=== PATIENT | female | born 1995 | race Caucasian/White ===

== ENCOUNTER → 2023-12-15 11:29 | Outpatient (REF) | payer OTHER, SELFPAY | LOC: PNTC 11:29 | PROVIDERS: ATTENDING PHYSICIAN Obstetrics & Gynecology | DX: O28.3 Abnormal ultrasonic finding on antenatal screening of mother (principal); O99.119 Other diseases of the blood and blood-forming organs and certain disorders involving the immune mechanism complicating pregnancy, unspecified trimester | CPT/HCPCS: 76816 ==

== ENCOUNTER 2024-01-06 10:30 | Observation (INO) | payer OTHER, SELFPAY ==
[2024-01-06 10:40] VITALS: BP 114/72; BMI 28.3
== END 2024-01-06 11:31 | disposition home or self-care (01) ==
LOC: LDRP 10:30
PROVIDERS: ADMITTING PHYSICIAN Obstetrics & Gynecology
DX: O36.8130 Decreased fetal movements, third trimester, not applicable or unspecified (principal); O26.893 Other specified pregnancy related conditions, third trimester; M35.00 Sjogren syndrome, unspecified; M32.9 Systemic lupus erythematosus, unspecified; Z3A.29 29 weeks gestation of pregnancy
CPT/HCPCS: 76816

== ENCOUNTER → 2024-01-27 16:57 | Outpatient (REF) | payer OTHER, SELFPAY | LOC: PNTC 16:57 | PROVIDERS: ATTENDING PHYSICIAN Obstetrics & Gynecology | DX: O99.119 Other diseases of the blood and blood-forming organs and certain disorders involving the immune mechanism complicating pregnancy, unspecified trimester (principal) | CPT/HCPCS: 59025; 76815 ==

== ENCOUNTER 2024-01-27 18:36 | Outpatient (RCR) | payer OTHER, SELFPAY | END 2024-01-27 23:59 | disposition home or self-care (01) | LOC: RPT 18:36 | PROVIDERS: ATTENDING PHYSICIAN Obstetrics & Gynecology | DX: O26.893 Other specified pregnancy related conditions, third trimester (principal); N39.3 Stress incontinence (female) (male); Z73.6 Limitation of activities due to disability; M62.81 Muscle weakness (generalized); R10.2 Pelvic and perineal pain | CPT/HCPCS: 97112; 97163; 97530 ==

== ENCOUNTER → 2024-02-03 16:58 | Outpatient (REF) | payer OTHER, SELFPAY | LOC: PNTC 16:58 | PROVIDERS: ATTENDING PHYSICIAN Obstetrics & Gynecology | DX: O99.119 Other diseases of the blood and blood-forming organs and certain disorders involving the immune mechanism complicating pregnancy, unspecified trimester (principal) | CPT/HCPCS: 59025; 76816 ==

== ENCOUNTER → 2024-02-10 16:58 | Outpatient (REF) | payer OTHER, SELFPAY | LOC: PNTC 16:58 | PROVIDERS: ATTENDING PHYSICIAN Obstetrics & Gynecology | DX: O99.119 Other diseases of the blood and blood-forming organs and certain disorders involving the immune mechanism complicating pregnancy, unspecified trimester (principal) | CPT/HCPCS: 59025; 76815 ==

== ENCOUNTER → 2024-02-17 17:00 | Outpatient (REF) | payer OTHER, SELFPAY | LOC: PNTC 17:00 | PROVIDERS: ATTENDING PHYSICIAN Obstetrics & Gynecology | DX: O99.119 Other diseases of the blood and blood-forming organs and certain disorders involving the immune mechanism complicating pregnancy, unspecified trimester (principal) | CPT/HCPCS: 59025; 76815 ==

== ENCOUNTER → 2024-02-24 17:08 | Outpatient (REF) | payer OTHER, SELFPAY | LOC: PNTC 17:08 | PROVIDERS: ATTENDING PHYSICIAN Obstetrics & Gynecology | DX: O99.119 Other diseases of the blood and blood-forming organs and certain disorders involving the immune mechanism complicating pregnancy, unspecified trimester (principal) | CPT/HCPCS: 59025; 76815 ==

== ENCOUNTER → 2024-03-02 16:55 | Outpatient (REF) | payer OTHER, SELFPAY | LOC: PNTC 16:55 | PROVIDERS: ATTENDING PHYSICIAN Obstetrics & Gynecology | DX: O99.119 Other diseases of the blood and blood-forming organs and certain disorders involving the immune mechanism complicating pregnancy, unspecified trimester (principal) | CPT/HCPCS: 59025; 76816; 76818 ==

== ENCOUNTER 2024-03-02 19:14 | Outpatient (RCR) | payer OTHER, SELFPAY | END 2024-03-02 23:59 | disposition home or self-care (01) | LOC: RPT 19:14 | PROVIDERS: ATTENDING PHYSICIAN Obstetrics & Gynecology | DX: O26.893 Other specified pregnancy related conditions, third trimester (principal); N39.3 Stress incontinence (female) (male); Z73.6 Limitation of activities due to disability; M62.81 Muscle weakness (generalized); R10.2 Pelvic and perineal pain; M54.50 Low back pain, unspecified | CPT/HCPCS: 59025; 97110; 97112; 97140; 97530 ==

== ENCOUNTER → 2024-03-09 16:04 | Outpatient (REF) | payer OTHER, SELFPAY | LOC: PNTC 16:04 | PROVIDERS: ATTENDING PHYSICIAN Obstetrics & Gynecology | DX: O99.119 Other diseases of the blood and blood-forming organs and certain disorders involving the immune mechanism complicating pregnancy, unspecified trimester (principal) | CPT/HCPCS: 59025; 76815 ==

== ENCOUNTER 2024-03-09 18:54 | Outpatient (RCR) | payer OTHER, SELFPAY | END 2024-03-30 08:29 | disposition home or self-care (01) | LOC: RPT 18:54 | PROVIDERS: ATTENDING PHYSICIAN Obstetrics & Gynecology | DX: O26.893 Other specified pregnancy related conditions, third trimester (principal); N39.3 Stress incontinence (female) (male); Z73.6 Limitation of activities due to disability; M62.81 Muscle weakness (generalized); R10.2 Pelvic and perineal pain | CPT/HCPCS: 97110; 97140; 97530 ==

== ENCOUNTER 2024-03-15 12:41 | Inpatient (IN) | payer OTHER, SELFPAY ==
[2024-03-15 12:54] VITALS: BP 120/75; BMI 31.1
[2024-03-15 14:11] LABS: % Basophils 0.5 % (0-2); % Eosinophils 0.8 % (0-6); % Immature Granulocytes 0.7 % (0-0.5); % Lymphocytes 25.5 % (20.5-51.1); % Monocytes 6.6 % (1.7-9.3); % Neutrophils 65.9 % (42.2-75.2); Absolute Eosinophils 0.1 10^3/uL (0-0.7); Absolute Immature Granulocytes 0.1 10^3/uL (0-0.05); Absolute Lymphocytes 2.2 10^3/uL (1.2-3.4); Absolute Monocytes 0.6 10^3/uL (0.1-0.6); Absolute Neutrophils 5.7 10^3/uL (1.4-6.5); Hematocrit 38.4 % (37.0-47.0); Hemoglobin 13.3 g/dL (12.0-16.0); Mean Corp Hgb Conc. 34.6 g/dL (33.0-37.0); Mean Corpuscular Hgb 27.7 pg (27.0-31.0); Mean Corpuscular Volume 79.8 fL (81.0-99.0); Mean Platelet Volume 9.6 fL (7.4-10.4); Nucleated Red Blood Cells % 0 %; Platelet Count 206 10^3/uL (130-400); Red Blood Cell Count 4.81 10^6/uL (4.20-5.40); Red Cell Dist. Width 12.3 % (11.5-14.5); White Blood Cell Count 8.6 10^3/uL (4.8-10.8)
[2024-03-15] MEDS: PITOCIN 30 UNITS/NSS 500 ML IV (17:30)
[2024-03-16] MEDS: LR 1000 IV ×2 (07:30→15:30)
[2024-03-16] MEDS: SUBLIMAZE 100 MCG EPIDURAL ×2 (15:36→15:55)
[2024-03-16] MEDS: FENTANYL/BUPIVACAINE 100 EPIDURAL (15:54)
[2024-03-16] MEDS: PITOCIN 30 UNITS/NSS 500 ML IV (22:52)
[2024-03-16] MEDS: CYTOTEC 800 MCG RECTAL (22:52)
[2024-03-17] MEDS: MOTRIN 600 MG PO ×4 (02:30→20:58)
--- NOTE | 2024-03-17 03:19 | DOWNTIME ---
There was a [employer] Downtime on 03/16/2024 from 0100 to 03/17/2024 at 0300. Downtime documentation of patient's care, including medication administrations, has been reconciled in the electronic record per guidelines. Refer to the
patient's paper chart under the miscellaneous tab to see printed paper medication records and downtime forms.
[2024-03-17 06:03] LABS: Hematocrit 32.6 % (37.0-47.0); Hemoglobin 11.3 g/dL (12.0-16.0)
[2024-03-17] MEDS: TYLENOL 650 MG PO ×3 (08:25→20:58)
[2024-03-17] MEDS: PLAQUENIL 400 MG PO (20:05)
[2024-03-17] MEDS: PRENATAL PLUS 1 TABLET PO (20:05)
[2024-03-17] MEDS: SENOKOT-S 1 TABLET PO (20:58)
[2024-03-18] MEDS: TYLENOL 650 MG PO ×2 (05:57→13:08)
[2024-03-18] MEDS: MOTRIN 600 MG PO ×2 (05:57→13:07)
[2024-03-19 13:30] LABS: Syphilis/T. pallidum Ab Reflex Negative (Negative)
== END 2024-03-18 14:00 | disposition home or self-care (01) | DRG 807 ==
LOC: LDRP 12:41
PROVIDERS: Obstetrics & Gynecology; ADMITTING PHYSICIAN Obstetrics & Gynecology
PROC: 0UQMXZZ Repair Vulva, External Approach (ICD-10-PCS; 2024-03-16)
PROC: 10E0XZZ Delivery of Products of Conception, External Approach (ICD-10-PCS; 2024-03-16)
PROC: 0HQ9XZZ Repair Perineum Skin, External Approach (ICD-10-PCS; 2024-03-16)
DX: O42.02 Full-term premature rupture of membranes, onset of labor within 24 hours of rupture (principal); Z37.0 Single live birth; O76 Abnormality in fetal heart rate and rhythm complicating labor and delivery; O70.0 First degree perineal laceration during delivery; Z3A.39 39 weeks gestation of pregnancy
CPT/HCPCS: 88307; 36415; 85014; 85018; 85025; 86780; 86850; 86900; 86901

== ENCOUNTER 2025-01-25 11:58 | Outpatient (RCR) | payer OTHER, SELFPAY | END 2025-01-25 23:59 | disposition home or self-care (01) | LOC: RPT 11:58 | PROVIDERS: ATTENDING PHYSICIAN Obstetrics & Gynecology; FAMILY PHYSICIAN Family Medicine | DX: N39.46 Mixed incontinence (principal); N94.10 Unspecified dyspareunia; Z73.6 Limitation of activities due to disability; M62.81 Muscle weakness (generalized); M54.6 Pain in thoracic spine | CPT/HCPCS: 97163; 97530 ==

== ENCOUNTER 2025-03-01 18:00 | Outpatient (RCR) | payer OTHER, SELFPAY | END 2025-03-01 23:59 | disposition home or self-care (01) | LOC: RPT 18:00 | PROVIDERS: ATTENDING PHYSICIAN Obstetrics & Gynecology; FAMILY PHYSICIAN Family Medicine | DX: N39.46 Mixed incontinence (principal); N94.10 Unspecified dyspareunia; M62.81 Muscle weakness (generalized); Z73.6 Limitation of activities due to disability | CPT/HCPCS: 97014; 97110; 97112; 97140; 97530 ==

== ENCOUNTER 2025-03-29 18:07 | Outpatient (RCR) | payer OTHER, SELFPAY | END 2025-03-29 23:59 | disposition home or self-care (01) | LOC: RPT 18:07 | PROVIDERS: ATTENDING PHYSICIAN Obstetrics & Gynecology; FAMILY PHYSICIAN Family Medicine | DX: N39.46 Mixed incontinence (principal); N94.10 Unspecified dyspareunia; M62.81 Muscle weakness (generalized); Z73.6 Limitation of activities due to disability | CPT/HCPCS: 97014; 97110; 97112; 97530 ==

== ENCOUNTER 2025-04-26 18:09 | Outpatient (RCR) | payer OTHER, SELFPAY | END 2025-04-26 23:59 | disposition home or self-care (01) | LOC: RPT 18:09 | PROVIDERS: ATTENDING PHYSICIAN Obstetrics & Gynecology; FAMILY PHYSICIAN Family Medicine | DX: N39.46 Mixed incontinence (principal); N94.10 Unspecified dyspareunia; M62.81 Muscle weakness (generalized); Z73.6 Limitation of activities due to disability | CPT/HCPCS: 97110; 97112; 97530 ==

== ENCOUNTER 2025-05-27 11:04 | Outpatient (RCR) | payer OTHER, SELFPAY | END 2025-05-27 23:59 | disposition home or self-care (01) | LOC: RPT 11:04 | PROVIDERS: ATTENDING PHYSICIAN Obstetrics & Gynecology; FAMILY PHYSICIAN Family Medicine | DX: N39.46 Mixed incontinence (principal); N94.10 Unspecified dyspareunia; M62.81 Muscle weakness (generalized); Z73.6 Limitation of activities due to disability | CPT/HCPCS: 97014; 97112; 97530 ==

== ENCOUNTER 2025-06-29 18:06 | Outpatient (RCR) | payer OTHER, SELFPAY | END 2025-06-29 23:59 | disposition home or self-care (01) | LOC: RPT 18:06 | PROVIDERS: ATTENDING PHYSICIAN Obstetrics & Gynecology; FAMILY PHYSICIAN Family Medicine | DX: N39.46 Mixed incontinence (principal); N94.10 Unspecified dyspareunia; M62.81 Muscle weakness (generalized); Z73.6 Limitation of activities due to disability | CPT/HCPCS: 97014; 97110; 97112; 97530 ==

== ENCOUNTER 2025-07-25 15:08 | Outpatient (RCR) | payer OTHER, SELFPAY | END 2025-07-25 23:59 | disposition home or self-care (01) | LOC: RPT 15:08 | PROVIDERS: ATTENDING PHYSICIAN Obstetrics & Gynecology; FAMILY PHYSICIAN Family Medicine | DX: N39.46 Mixed incontinence (principal); N94.10 Unspecified dyspareunia; M62.81 Muscle weakness (generalized); Z73.6 Limitation of activities due to disability | CPT/HCPCS: 97112; 97530 ==

== ENCOUNTER 2025-09-09 07:32 | Outpatient (RCR) | payer OTHER, SELFPAY | END 2025-09-09 10:10 | disposition home or self-care (01) | LOC: RPT 07:32 | PROVIDERS: ATTENDING PHYSICIAN Obstetrics & Gynecology; FAMILY PHYSICIAN Family Medicine | DX: N39.46 Mixed incontinence (principal); N94.10 Unspecified dyspareunia; M62.81 Muscle weakness (generalized); Z73.6 Limitation of activities due to disability | CPT/HCPCS: 97110; 97530 ==